=== PATIENT | male | born 1945 | race Caucasian/White ===

== ENCOUNTER 2017-10-21 12:29 | Outpatient (CLI) | payer MEDICARE ==
[2017-10-21 13:40] LABS: #Eosinphils 0.2 thou/uL (0.0-0.7); #Lymphocytes 1.9 thou/uL (1.20-3.40); #Monocytes 0.8 thou/uL (0.11-0.59); #Neutrophils 3.8 thou/uL (1.40-6.50); %Basophils 0.1 % (0.0-1.0); %Eosinophils 2.4 % (0.0-10.0); %Lymphocytes 28.8 % (21.0-51.0); %Monocytes 11.9 % (0.0-10.0); Hematocrit 44.1 % (42.0-52.0); Mean Platelet Volume 7.3 fL (7.4-10.4); Red Blood Cell (RBC) Count 4.46 mill/uL (4.70-6.10); White Blood Cell (WBC) Count 6.7 thou/uL (4.8-10.8)
[2017-10-21 13:42] LABS: Bilirubin Negative (Negative); Blood, Urine Negative (Negative); Glucose, Urine (Dipstick) Negative (Negative); Ketone, Urine Negative (Negative); Nitrite Negative (Negative); Protein, Urine (Dipstick) Negative (Neg-Trace); Urobilinogen 0.2 mg/dL (0.2-1.0)
[2017-10-21 13:47] LABS: Bacteria/HPF None Seen HPF (None Seen); Hyaline Casts/LPF 0-3 HYALINE CAST LPF (0-3 Hyaline); RBC/HPF 0-3 HPF (0-3); Squamous Epithelial 0-3 HPF (0-3); WBC/HPF 0-3 HPF (0-3)
== END 2017-10-21 12:30 | disposition home or self-care (01) ==
LOC: LABBT 12:29
PROVIDERS: ATTEND Orthopaedic Surgery
DX: Z01.818 Encounter for other preprocedural examination (principal); S62.102A Fracture of unspecified carpal bone, left wrist, initial encounter for closed fracture
CPT/HCPCS: 81001; 85025; 93005; 93010

== ENCOUNTER 2017-10-27 08:34 | Day surgery (SDC) | payer MEDICARE ==
[2017-10-21 12:25] VITALS: BMI 34.7
[2017-10-27] MEDS ORDERED: CEFAZOLIN/Water 2 GM/20 ML SYRINGE ONE (09:38)
[2017-10-27] MEDS ORDERED: Midazolam HCl 2 mg/2 ml Vial ONE ×2 (10:40→13:13)
[2017-10-27] MEDS ORDERED: Lidocaine 1% (PF) 30 ML VIAL ONE (10:41)
[2017-10-27] MEDS ORDERED: Fentanyl 100 MCG/2 ML VIAL ONE ×7 (10:41→17:58)
[2017-10-27] MEDS ORDERED: Propofol 200 MG/20 ML VIAL ONE (11:46)
[2017-10-27] MEDS ORDERED: Lidocaine 1% PF 5 ML VIAL ONE (11:46)
[2017-10-27] MEDS ORDERED: Ondansetron HCl/PF 4 MG/2 ML Vial ONE (11:46)
[2017-10-27] MEDS ORDERED: Labetalol HCl 100 MG/20 ML VIAL ONE (11:46)
[2017-10-27] MEDS ORDERED: Bupivacaine PF 0.5% 30 ML VIAL ONE (14:18)
[2017-10-27] MEDS ORDERED: Bupivacaine/Epinephrine 0.25% 30 ML VIAL ONE (14:18)
[2017-10-27] MEDS ORDERED: Meperidine HCl/PF 25 MG/ML VIAL ONE (14:52)
[2017-10-27] MEDS ORDERED: Ropivacaine 0.5% HCl/PF (150 MG/30 ML VIAL) ONE (16:11)
[2017-10-27] MEDS ORDERED: Ropivacaine 0.2% HCl/PF 20 ML ONE (16:11)
--- NOTE | 2017-10-27 16:17 | RAD ---
LEFT WRIST INTRAOPERATIVE FLUOROSCOPY TWO VIEWS: History: Wrist fracture. FINDINGS: Intraoperative fluoroscopy is provided for internal fixation of the distal left radius as performed ana Barton. Multiple spot fluoroscopic images show volar compression plate and multiple screws to transfix the comminuted distal radial fracture in anatomic alignment. POS: [facility]
[2017-10-27] MEDS ORDERED: Promethazine HCl 25 MG/ML VIAL IM PRN (16:56)
[2017-10-27] MEDS ORDERED: Ondansetron HCl/PF 4 MG/2 ML Vial IVP PRN (16:56)
[2017-10-27] MEDS ORDERED: traMADol HCl 50 MG TAB PO PRN ×2 (16:56)
[2017-10-27] MEDS ORDERED: HYDROcodone/Acetaminophen 5/325 mg Tablet PO PRN ×2 (16:56)
[2017-10-27] MEDS ORDERED: Ropivacaine 0.2% 550 ML 550 ML NERVE BLCK SCH (16:56)
[2017-10-27] MEDS ORDERED: Zolpidem Tartrate 5 MG TAB PO PRN (16:56)
[2017-10-27] MEDS ORDERED: Fentanyl 100 MCG/2 ML VIAL IV PRN (16:57)
[2017-10-27] MEDS ORDERED: Fentanyl 100 MCG/2 ML VIAL SLOW IVP SCH (17:00)
[2017-10-27] MEDS ORDERED: Fentanyl 100 MCG/2 ML VIAL SLOW IVP PRN (18:32)
[2017-10-27] MEDS ORDERED: HYDROmorphone 2 MG/ML VIAL SLOW IVP PRN (18:33)
[2017-10-27] MEDS ORDERED: HYDROcodone/Acetaminophen 5/325 mg Tablet ONE ×2 (18:56→20:16)
--- NOTE | 2017-10-28 11:17 | OP ---
DATE OF PROCEDURE: 10/27/2017 PREOPERATIVE DIAGNOSIS: Left metaphyseal/metadiaphyseal comminuted (greater than 3 parts) intra-articular distal radius fracture. POSTOPERATIVE DIAGNOSIS: Left metaphyseal/metadiaphyseal comminuted (greater than 3 parts) intra-articular distal radius fracture. PROCEDURE: Open reduction and internal fixation left distal radius metaphyseal / metadiaphyseal fracture utilizing volar approach. SURGEON: Anoop Barton M.D. MEDICAL ASSISTANT SUPERVISOR: Karl Win PA-C. ANESTHESIA: General via laryngeal mask airway augmented with indwelling interscalene block. COMPONENTS USED: Synthes 2 column distal radius plate with 4-hole and wide. TOURNIQUET TIME: 35 minutes. FINDINGS: Displaced shortened comminuted intra-articular fracture as described on radiographs. DRAINS: None. SPECIMENS: None. COMPLICATIONS: None. COUNTS: Correct. INDICATIONS FOR SURGERY: The patient is a 72-year-old white male who fell on outstretched left forearm approximately a week ago. He has elected to proceed with open reduction and internal fixation as definitive treatment of this problem. PROCEDURE IN DETAIL: After informed consent was obtained in the preoperative holding area, the patient received preoperative antibiotics, was taken to the operative suite where general anesthesia was induced. Once adequate anesthesia obtained, the patient was positioned appropriately on the operating table with arm board. The left upper extremity was then prepped and draped in the usual sterile fashion after placing a well-padded tourniquet. Prior to exsanguination , a timeout was called and all members of the surgical team agreed on site, surgeon, and patient. The tourniquet was raised where it remained for the remainder of the case. A volar approach was chosen and a longitudinal incision was made from the volar crease proximal approximately 3 fingerbreadths on a radial side of the forearm. The flexor carpi radialis encountered identified and retracted laterally. Deeper fascia was sharply incised. The pronator quadratus was encountered and incised along the radial border and reflected with subperiosteal dissection. Retractors were placed and provisional reduction was obtained and we chose a wide 4-hole plate. Fluoroscopy was brought into the field and we confirmed good axial alignment of the plate. Provisional center screw was placed and repeat radiographs demonstrated good placement; therefore, we went ahead and reduced the fracture, pinned it in place and began to place permanent distal locking screws. We ended up putting a total of 3 cortical screws proximally 16 mm in length each. Plain radiographs were obtained, AP and lateral view and PA views. We were happy with our anatomic reduction and good screw placement. The wound was irrigated copiously with normal saline. Primary closure was accomplished with 2-0 interrupted Vicryl in the subcutaneous layer and nylon 3-0 stitches were placed in a horizontal mattress style. Sterile dressing was applied with a volar splint. Tourniquet was dropped and the patient had good return of capillary refill. The procedure was terminated without any complication. LMA was removed. He was taken to the recovery room in stable condition. KAYLIN
== END 2017-10-27 20:50 | disposition home or self-care (01) ==
LOC: SDC 08:34
PROVIDERS: ATTEND Orthopaedic Surgery
PROC: 0PSJ04Z Reposition Left Radius with Internal Fixation Device, Open Approach (ICD-10-PCS; principal; 2017-10-27)
DX: S52.572A Other intraarticular fracture of lower end of left radius, initial encounter for closed fracture (principal); I10 Essential (primary) hypertension; J45.909 Unspecified asthma, uncomplicated; G43.909 Migraine, unspecified, not intractable, without status migrainosus; F41.9 Anxiety disorder, unspecified; N40.0 Benign prostatic hyperplasia without lower urinary tract symptoms; G47.30 Sleep apnea, unspecified; Z79.899 Other long term (current) drug therapy; Z99.89 Dependence on other enabling machines and devices; Z96.1 Presence of intraocular lens; Z87.891 Personal history of nicotine dependence; Z87.81 Personal history of (healed) traumatic fracture
CPT/HCPCS: 25609; 73100; 76001; 96374 ×2; A4306; C1713 ×2; J2001; J2175; J2250; J2405; J2704; J2795; J3010; S0020